=== PATIENT | male | born 1980 | race Caucasian/White ===

== ENCOUNTER → 2016-09-21 | Outpatient (CLI) | payer MEDICAID ==
[~2016-09-21] MED LIST: BACTRIM 400 MG-1 TAB PO; CLONIDINE 0.2M0.2 MG PO; NAPROXEN SODIU500 MG PO; ROBAXIN-750750 MG PO
[2016-09-21 18:54] LABS: HEMOGLOBIN 16.2 g/dL (14.1-18.0); LYMPH # 1.1 K/mm3 (0.7-4.5)
[2016-09-21 19:59] LABS: BUN 15 mg/dL (7-18); GFR (ESTIMATED) 96 ML/MIN (>60)
[2016-09-23 08:43] LABS: Vitamin D, 25-Hydroxy 40.4 ng/mL (30.0-100.0)
[2016-09-23 09:38] LABS: HBsAg Screen Negative (Negative); Hep A Ab, IgM Negative (Negative); Hep B Core Ab, IgM Negative (Negative); Hep C Virus Ab <0.1 (0.0-0.9)
== END ==
LOC: LAB 18:10
PROVIDERS: Physician Assistant
DX: I10 Essential (primary) hypertension (principal); F19.90 Other psychoactive substance use, unspecified, uncomplicated; G47.00 Insomnia, unspecified
CPT/HCPCS: G0432

== ENCOUNTER 2016-11-08 13:48 | Inpatient (IN) | payer MEDICAID ==
[~2016-11-08] VITALS: Ht 185.4 cm; Wt 112.9 kg
[2016-11-08 13:53] VITALS: BP 144/88
[2016-11-08] MEDS ORDERED: RESTORIL 30MG C30 MG PO (13:56)
[2016-11-08] MEDS ORDERED: ESCITALOPRAM5 MG PO (13:56)
--- OUTSIDE RECORDS SUMMARY | 2016-11-08 14:13 | External Medical Summary Rpt ---
Author Author , RUBI VENEGAS Address Unknown Phone [email or web address] Purpose Continuity of Care Document - 10-17-2011 through 2016 Results Labs Lab Lab Date Result Refere Interp Status Commen Order Detail nces retati t Range on Reagin Ab [Presence] in Unspecified specimen by VDRL (10-17-2011 08:00) Reagin NON-WATSON complet Ab 012 CTIVE ed [Presen 08:00 ce] in Unspeci fied specime n by VDRL Reagin Ab [Presence] in Unspecified specimen by VDRL (10-17-2011 08:00) COLLECT N/A complet OR 012 ed 08:00 ETHNICI W complet TY 012 ed 08:00 PURPOSE ROUTINE complet OF 012 ed EXAM 08:00 SPECIME BLOOD complet N 012 ed SOURCE 08:00 CHART [id number] complet NUMBER 012 ed 08:00 Reagin Pending complet Ab 012 ed [Presen 08:00 ce] in Unspeci fied specime n by VDRL
--- OUTSIDE RECORDS SUMMARY | 2016-11-08 14:13 | External Medical Summary Rpt ---
Author Author , RUBI VENEGAS Address Unknown Phone [email or web address] Purpose Continuity of Care Document - 10-17-2011 [...] complet N 012 ed SOURCE 08:00 CHART [id number] complet NUMBER 012 ed 08:00 Reagin Pending complet Ab 012 ed [Presen 08:00 ce] in Unspeci fied specime n by VDRL
--- OUTSIDE RECORDS SUMMARY | 2016-11-08 14:13 | External Medical Summary Rpt ---
Author Author [employer] Organization [employer] Address Unknown Phone Unavailable Purpose Continuity of Care Document - through 2016
--- OUTSIDE RECORDS SUMMARY | 2016-11-08 14:14 | External Medical Summary Rpt ---
Demographics Preferred Language Jordanian Marital Status Unknown Jain Affiliation Unknown Race Unknown Ethnic Group Unknown Author Author , RUBI VENEGAS Address Unknown Phone Immunization Unable to retrieve immunization data due to connection failure with Immunization Registry. Please try again later.
--- OUTSIDE RECORDS SUMMARY | 2016-11-08 14:14 | External Medical Summary Rpt ---
Demographics Preferred Language Cape Verdean Marital Status Unknown Yazidism Affiliation Unknown Race Unknown Ethnic Group Unknown Author Author , RUBI VENEGAS Address Unknown Phone Immunization Unable to retrieve immunization data due to connection failure with Immunization Registry. Please try again later.
--- OUTSIDE RECORDS SUMMARY | 2016-11-08 14:15 | External Medical Summary Rpt ---
Author Author RUBI Yamilet, [employer] Address Unknown Phone Unavailable Results Comprehensive metabolic 2000 panel in Serum or Plasma Observa Value Referen Units Interpr Notes Date tion ce etation Range Albumin/G 1.1 - 1.8 No Normal No September 21 lobulin informati informati 2016 [Mass on in on in 11:00 AM ratio] in source source Serum or data data Plasma Albumin 3.4 - 5.0 gm/dL Normal No September 21 [Mass/vol informati 2016 ume] in on in 11:00 AM Serum or source Plasma data Alkaline 46 - 116 U/L Normal No September 21 phosphata informati 2016 se on in 11:00 AM [Enzymati source c data activity/ volume] in Serum or Plasma Bilirubin 0.2 - 1.0 mg/dL Normal No September 21 .total informati 2016 [Mass/vol on in 11:00 AM ume] in source Serum or data Plasma Urea 7 - 18 mg/dL Normal No September 21 nitrogen informati 2016 [Mass/vol on in 11:00 AM ume] in source Serum or data Plasma Calcium 8.5 - mg/dL Normal No September 21 [Mass/vol 10.1 informati 2016 ume] in on in 11:00 AM Serum or source Plasma data Chloride 98 - 107 mmoL/L Normal No September 21 [Moles/vo informati 2016 lume] in on in 11:00 AM Serum or source Plasma data Carbon 21.0 - mmoL/L Normal No September 21 dioxide, 32.0 informati 2016 total on in 11:00 AM [Moles/vo source lume] in data Serum or Plasma Creatinin 0.70 - mg/dL Normal No September 21 e 1.30 informati 2016 [Mass/vol on in 11:00 AM ume] in source Serum or data Plasma Estimated >60 ML/MIN No REFERENCE September 21 informati RANGE: 2017 glomerula on in >60 11:00 AM r source ML/MIN/1. filtratio data 73 SQUARE n rate METERSIf (GF this patient is -A merican, then multiply theresult by 1.210. Globulin 1.3 - 3.2 gm/dL High No September 21 [Mass/vol informati 2016 ume] in on in 11:00 AM Serum source data Glucose 74 - 106 mg/dL Normal No September 21 [Mass/vol informati 2017 ume] in on in 11:00 AM Serum or source Plasma data Potassium 3.5 - 5.1 mmoL/L Normal No September 212016 [Moles/vo on in 11:00 AM lume] in source Serum or data Plasma Sodium 136 - 145 mmoL/L Normal No September 21 [Moles/vo informati 2016 lume] in on in 11:00 AM Serum or source Plasma data Aspartate 15 - 37 U/L Low No September 212016 aminotran on in 11:00 AM sferase source [Enzymati data c activity/ volume] in Serum or Plasma Alanine 12 - 78 U/L Normal No September 21 aminotran 2016 sferase on in 11:00 AM [Enzymati source c data activity/ volume] in Serum or Plasma Protein 6.4 - 8.2 gm/dL Normal No September 21 [Mass/vol informati 2017 ume] in on in 11:00 AM Serum or source Plasma data Thyroxine (T4) free [Mass/volume] in Serum or Plasma Observa Value Referen Units Interpr Notes Date tion ce etation Range Thyroxine 0.76 - ng/dL High No September 21 (T4) 1.46 2016 free on in 11:00 AM [Mass/vol source ume] in data Serum or Plasma Thyrotropin [Units/volume] in Serum or Plasma Observa Value Referen Units Interpr Notes Date tion ce etation Range Thyrotrop 0.358 - uIU/ml Normal No September 21 in 3.740 inform2016 [Units/vo on in 11:00 AM lume] in source Serum or data Plasma CBC W Auto Differential panel in Blood Observa Value Referen Units Interpr Notes Date ti ce etation Range Basophils 0 - 0.2 K/MM3 Normal No September 212016 [#/volume on in 11:00 AM ] in source Blood by data Automated count Basophils 0.1 - 2.0 % Normal No September 21 /100 2016 leukocyte on in 11:00 AM s in source Blood by data Automated count Eosinophi 0.0 - 0.4 K/mm3 Normal No September 21 ls informati 2016 [#/volume on in 11:00 AM ] in source Blood by data Automated count Eosinophi 0.1 - % Normal No September 21 ls/100 12.0 informati 2016 leukocyte on in 11:00 AM s in source Blood by data Automated count Granulocy 1.3 - 8.0 K/mm3 Normal No September 21 tonie informati 2016 [#/volume on in 11:00 AM ] in source Blood by data Automated count Granulocy 37.0 - % Normal No September 21 tonie/100 80.0 informati 2016 leukocyte on in 11:00 AM s in source Blood by data Automated count Hematocri 42.0 - % Normal No September 21 t [Volume 52.0 informati 2016 on in 11:00 AM Fraction] source of Blood data Hemoglobi 14.1 - g/dL Normal No September 21 n 18.0 informati 2016 [Mass/vol on in 11:00 AM ume] in source Blood data Lymphocyt 0.7 - 4.5 K/mm3 Normal No September 21 es informati 2016 [#/volume on in 11:00 AM ] in source Unspecifi data ed specimen by Automated count Lymphocyt 10 - 50 % Normal No September 21 es informati 2016 [#/volume on in 11:00 AM ] in source Unspecifi data ed specimen by Automated count Erythrocy 27 - 31.2 pg High No September 21 te mean informati 2016 corpuscul on in 11:00 AM ar source hemoglobi data n [Entitic mass] Erythrocy 31.8 - g/dl Normal September 21 te mean 35.4 informati 2016 corpuscul on in 11:00 AM ar source hemoglobi data n concentra tion [Mass/vol ume] by Automated count Erythrocy 82.2 - fl High No September 21 te mean 97.8 informati 2016 corpuscul on in 11:00 AM ar volume source [Entitic data volume] by Automated count Monocytes 0.1 - 1.0 K/mm3 Normal No September 21 informati 2016 [#/volume on in 11:00 AM ] in source Blood by data Automated count Monocytes 1.7 - 9.3 % Normal No September 21 / informati 2016 leukocyte on in 11:00 AM s in source Blood by data Automated count Platelet 7.4 - fl Normal No September 21 mean 10.4 2016 volume on in 11:00 AM [Entitic source volume] data in Blood by Automated count Platelets 142 - 424 K/mm3 Normal No September 212016 [#/volume on in 11:00 AM ] in source Blood data Erythrocy 4.6 - 6.2 M/mm3 Normal No September 21 tonie 2016 [#/volume on in 11:00 AM ] in source Amniotic data fluid Erythrocy 11.5 - % Normal No September 21 te 17.5 2016 distribut on in 11:00 AM ion width source [Entitic data volume] by Automated count Leukocyte 4.8 - K/MM3 Normal No September 21 s 10.8 2016 [#/volume on in 11:00 AM ] in source Blood data Reagin Ab [Presence] in Unspecified specimen by VDRL Observa Value Referen Units Interpr Notes Date tion ce etation Range COLLECT N/A No No No No Oct 16 OR informa informa informa informa 2012 tion in tion in tion in tion in 8:00 AM source source source source data data data data ETHNICI W No No No No Oct 16 TY informa informa informa informa 2012 tion in tion in tion in tion in 8:00 AM source source source source data data data data PURPOSE ROUTINE No No No No Oct 16 OF informa informa informa informa 2012 EXAM tion in tion in tion in tion in 8:00 AM source source source source data data data data SPECIME BLOOD No No No No Oct 16 N informa informa informa informa 2012 SOURCE tion in tion in tion in tion in 8:00 AM source source source source data data data data CHART [id number] No No No No Oct 16 NUMBER informa informa informa informa 2012 tion in tion in tion in tion in 8:00 AM source source source source data data data data Reagin NON-WATSON No No No METHOD Oct [address]IVE informa informa informa OF 2011 [Presen tion in tion in tion in ANALYSI 8:00 AM ce] in source source source S: Unspeci data data data VDRLNOR fied MAL specime RANGE: n by NON VDRL REACTIV E\.br\T his report contain s patient informa tion that must be protect ed in [facility] with the [facility] [employer] ce Portabi lity and Account ability Act. Reagin Ab [Presence] in Unspecified specimen by VDRL Observa Value Referen Units Interpr Notes Date tion ce etation Range COLLECT N/A No No No No Oct 16 OR informa informa informa informa 2012 tion in tion in tion in tion in 8:00 AM source source source source data data data data ETHNICI W No No No No Oct 16 TY informa informa informa informa 2012 tion in tion in tion in tion in 8:00 AM source source source source data data data data PURPOSE ROUTINE No No No No Oct 16 OF informa informa informa informa 2012 EXAM tion in tion in tion in tion in 8:00 AM source source source source data data data data SPECIME BLOOD No No No No Oct 16 N informa informa informa informa 2012 SOURCE tion in tion in tion in tion in 8:00 AM source source source source data data data data CHART [id number] No No No No Oct 16 NUMBER informa informa informa informa 2012 tion in tion in tion in tion in 8:00 AM source source source source data data data data Reagin Pending No No No \.br\Oct 16 Ab informa informa informa is 2011 [Presen tion in tion in tion in report 8:00 AM ce] in source source source contain Unspeci data data data s fied patient specime n by informa VDRL tion that must be protect ed in [facility] with the [employer] ce Portabi lity and Account ability Act.
--- OUTSIDE RECORDS SUMMARY | 2016-11-08 14:15 | External Medical Summary Rpt ---
[...] source source data data data data CHART [id number] No No No No Oct 16 NUMBER [...] tion that must be protect ed in [facility] with the Health Ins[employer] ce Portabi [...] source source data data data data CHART [id number] No No No No Oct 16 NUMBER [...] tion that must be protect ed in [facility] with the [employer] ce Portabi lity and Account ability Act.
[2016-11-08 14:16] LABS: HEMOGLOBIN 16.6 g/dL (14.1-18.0); LYMPH % 26.5 % (10-50)
--- NOTE | 2016-11-08 14:36 | Emergency Room Report ---
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 N Clinical Suspician of Infection? N Mental Status: 1 - Regular (Normal Baseline) Sepsis Risk:Low Sepsis Risk Have you (or family members/close friends) recently traveled outside the [place]? N If Yes, where/when: Have you had exposure to infectious disease within the past month? TB? Other? Specify: Comment The patient has a 3 day history of jaundice with scleral icterus and jaundice of the skin, dark urine. He says his kidneys hurt and he has abdominal cramping. He feels fatigued. He admits to intravenous drug abuse with heroin. He says he was tested for hepatitis month ago. No prior history of hepatitis. He does not use alcohol. He also states that he drank a gallon of 40 yesterday and only urinated once, he feels dehydrated. ALLERGIES Coded Allergies: No Known Allergies (11/08/16) Home Medications Reported Medications Clonidine Hydrochloride (Clonidine 0.2MG Tab) 0.2 MG PO DAILY Escitalopram Oxalate 5 MG PO DAILY #30 Temazepam (Restoril 30MG) 30 MG PO QHS #30 History Medical History General CAD? No Angina: No [place]: No Hypertension? Yes Hyperlipidemia? No CHF? No DVT? No PE? No COPD? No Asthma? No Anemia? No GERD? No Gastric ulcers? No Hernia? No Hypothyroidism? No CVA? No Seizures? No Diabetes? No End Stage Renal Disease? No UTI? No Stones? No BPH? No GB Disease: No Asplenia? No Sickle Cell Disease? No Arthritis? No Migraines? No Cataracts? No Glaucoma? No MRSA? No HIV? No Anxiety? No Depression? No Cancer? No Site: N Immunization Hx Ped.Immunizations UTD Yes DT/Tetanus Unknown Surgical Hx Previous Surgery?N Social History Smoking Hx Smoker: Current Every Day Smoker Tobacco: Yes Type Cigarettes Packs/day < 1 Pack Alcohol Alcohol: No Review of Systems All Other Systems Reviewed and Negative Constitutional denies fever, malaise Eyes see HPI Gastrointestinal abdominal pain Genitourinary see HPI. Physical Exam Vital Signs Vital Signs Date Time Temp Pulse Resp B/P Pulse O2 O2 Flow FiO2 Ox Delivery Rate 11/08 1817 98.5 73 20 109/74 98 ROOM AIR 11/08 1813 73 11/08 1813 98.5 73 20 109/74 11/08 1813 98 ROOM AIR 11/08 1759 98.8 73 14 116/81 98 11/08 1611 73 14 116/81 98 11/08 1528 72 18 132/81 98 11/08 1442 72 18 138/76 97 11/08 1353 98.8 73 18 144/88 96 General Appearance normal appearance, WD/WN Eye Exam - bilateral eye normal exam, bilateral eye PERRL, bilateral eye EOMI, bilateral eye icterus Ear, Nose, Throat hearing grossly normal, normal ENT inspection Neck normal inspection, non-tender, supple, full range of motion Respiratory Status Yes: trachea midline, chest symmetrical, non tender chest. No: respiratory distress. Lung Sounds bilateral: normal breath sounds, lungs clear. 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 No Results/Orders Laboratory Tests 11/08/16 1445: Urine Color CLEMENTE, Urine Appearance CLEAR, Urine pH TNP, Ur Specific [place] TNP , Urine Protein TNP, Urine Ketones TNP, Urine Blood TNP, Urine Nitrate TNP, Urine Bilirubin TNP, Urine Ictotest POSITIVE, Urine Urobilinogen TNP, Ur Leukocyte Esterase TNP, Urine RBC OCC, Urine WBC 5-10, Ur Squamous Epith Cells OCC, Urine Bacteria 3+, Coarse Granular Casts 5-10, WBC Casts OCC, Urine Mucus 2 +, Urine Glucose TNP 11/08/16 1432: Hepatitis A Ab Total Cancelled, Hep Bs Antigen Cancelled, Hep Bs Antibody Cancelled, Hep B Core Total Ab Cancelled, Hepatitis C Antibody Cancelled 11/08/16 1400: Amylase 27, Lipase 127 11/08/16 1400: Total Bilirubin 11.4 H, Direct Bilirubin 8.34 H, Indirect Bilirubin 3.06 H, AST 1187 *H, ALT 1672 *H, Alkaline Phosphatase 370 H, Total Protein 7.3, Albumin 3.3 L 11/08/16 1400: Sodium 141, Potassium 4.4, Chloride 103, Carbon Dioxide 30, BUN 12, Creatinine 0.8, Estimated Creat Clear 213 H, Estimated GFR (MDRD) 109, Glucose 92, Calcium 9.1, Total Bilirubin 11.3 H, AST 1201 *H, ALT 1649 *H, Alkaline Phosphatase 369 H, Total Protein 7.6, Albumin 3.2 L, Globulin 4.4 H, Albumin/Globulin Ratio 0.7 L, PT 11.7, INR 1.08, WBC 7.4, RBC 5.12, Hgb 16.6, Hct 50.2, MCV 97.9 H, RDW 14.3, Plt Count 237, MPV 8.5, Gran % 62.6, Gran # 4.7, Lymphocytes % 26.5, Monocytes % 9.3, Eosinophils % 0.9, Basophils % 0.7, Lymphocytes # 2.0, Monocytes # 0.7, Eosinophils # 0.1, Basophils # 0.1, PUBS MCHC 33.2, MCH 32.5 H , Hepatitis A IgM Ab Pending, Hep Bs Antigen Pending, Hep B Core IgM Ab Pending, Hepatitis C Antibody Pending Current Medication Orders Sig/[place] Start time Last Medication Dose Route Stop Time Status Admin Nicotine 21 MG DAILYP PRN 11/08 1800 UNV TD Ondansetron HCl 4 MG Q6HP PRN 11/08 1800 UNV IV Sodium Chloride 1,000 ML .Q6H40M 11/08 1800 UNV 11/08 IV 1811 Sodium Chloride 10 ML PRN PRN 11/08 1800 UNV IV Iopamidol 75 ML ONCE ONE 11/08 1615 DC 11/08 IV 11/08 1616 1606 Sodium Chloride 10 ML PRN PRN 11/08 1615 DC 11/08 IV 11/08 1735 1606 Ondansetron HCl 0 .STK-MED ONE 11/08 1451 DC .ROUTE Sodium Chloride 1,000 ML .STK-MED ONE 11/08 1450 DC IV Ondansetron HCl 4 MG ONCE ONE 11/08 1445 DC 11/08 IV 11/08 1446 1454 Sodium Chloride 1,000 ML .Q1H1M 11/08 1445 DC 11/08 IV 11/08 1545 1454 Sodium Chloride 10 ML PRN PRN 11/08 1400 AC IV 11/09 1358 Orders Procedure Date/time Status DIET-CLEAR LIQUID 11/09 B Active DIET-NOTHING BY MOUTH 11/08 D Complete ADMITTED PT IS ACTUALLY IN BED 11/08 1820 Active Decision to admit 11/08 1720 Active US GALLBLADDER (ABD LTD) 11/08 1626 Active LIVER PROFILE 11/[address] ABD & PELVIS W/ CONTRAST 11/08 1501 Active LIPASE 11/08 1456 Complete AMYLASE 11/[address] ABD/PELVIS REQ 11/08 1455 Complete CULTURE, URINE 11/08 1445 Active PROTHROMBIN TIME 11/08 1432 Complete HEPATITIS B PROFILE 11/08 1432 Active IV SALINE LOCK 11/08 1358 Active URINALYSIS/COMPLETE 11/08 1358 Complete CBC WITH AUTO DIFF 11/08 1358 Complete CHEM 12 PROFILE 11/08 1358 Complete ADMIT PATIENT 11/08 UNK Active VITAL SIGNS 11/08 UNK Active POM NURSE STACI HOSE ORDER 11/08 UNK Active IV SALINE LOCK 11/08 UNK Active RECORD I & O 11/08 UNK Active CODE STATUS 11/08 UNK Active PATIENT ACTIVITY ORDER 11/08 UNK Active COMPLETE METABOLIC PANEL 11/08 UNK Active XRAY/CT/US XRAY/CT/US CT abdomen, pelvis Comment CT scan interpreted by radiologist: Since scan less than one year ago gallbladder is now thickened, enhancing wall. Uncertain cause, questionable infarcted gallbladder. No signs of biliary obstruction seen, no dilated ducts. Ultrasound gallbladder Comment As per [facility] procedure, ultrasound report received from glass technician/installer: Thickened, contracted gallbladder. No stones. Common bile duct upper limits of normal. Progress - 4:20 PM: Case discussed with Dr. Leo. Gallbladder ultrasound requested. 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 5:20 PM: Case discussed with Dr. Ellington. He does not feel there is a surgical problem associated with his gallbladder at this time. Will admit for medical treatment. Departure Departure Disposition Still a Patient Clinical Impression Primary Impression: Acute hepatitis Condition STABLE Referrals RAJAT HUGHES (Family) ED Critical Care Critical Care No at 2015
[2016-11-08 15:07] LABS: URINE BILIRUBIN ICTOTEST POSITIVE (NEG)
[2016-11-08 15:09] LABS: URINE SQUAMOUS CELLS OCC #/hpf (OCC)
[2016-11-08 16:15] LABS: BILIRUBIN, INDIRECT 3.06 mg/dL (0-0.9)
--- OUTSIDE RECORDS SUMMARY | 2016-11-08 17:49 | External Medical Summary Rpt ---
Author Author , RUBI VENEGAS Address Unknown Phone [email or web address] Purpose Continuity of Care Document - 10-17-2011 through 2016 Results Labs Lab Lab Date Result Refere Interp Status Commen Order Detail nces retati t Range on Urinalysis dipstick W Reflex Microscopic panel in Urine (11-08-2016 14:45) Bacteri 3+ O complet a 017 ed [Presen 14:45 ce] in Urine sedimen t by Light microsc opy Coarse 5-10 NONE complet Granula 017 ed r Casts 14:45 [Presen ce] in Urine sedimen t by Light microsc opy Mucus 2+ NONE complet [Presen 017 ed ce] in 14:45 Urine sedimen t by Light microsc opy Erythro OCC 0 complet cytes 017 ed [Presen 14:45 ce] in Urine sedimen t by Light microsc opy Epithel OCC OCC complet ial 017 ed cells.s 14:45 quamous [Presen ce] in Urine sedimen t by Microsc opy high power field Leukocy 5-10 O complet tonie 017 wbc/hpf ed [#/volu 14:45 me] in Urine Urinalysis dipstick W Reflex Microscopic panel in Urine (11-08-2016 14:45) Appeara CLEAR CLEAR complet nce of 017 ed Urine 14:45 Bilirub TNP NEG complet in 017 ed [Presen 14:45 ce] in Urine by Test strip Erythro TNP NEG complet cytes 017 ed [Presen 14:45 ce] in Urine Color CLEMENTE YELLOW complet of 017 ed Urine 14:45 Bilirub POSITIV NEG complet in 017 E ed [Presen 14:45 ce] in Urine by Confirm atory method Ketones TNP NEG complet 017 ed [Presen 14:45 ce] in Urine by Automat ed test strip Mucus TNP NEG complet [Presen 017 ed ce] in 14:45 Urine sedimen t by Light microsc opy Nitrite TNP NEG complet 017 ed [Presen 14:45 ce] in Urine by Test strip pH of TNP 5.0 - complet Urine 017 8.5 ed 14:45 Specifi TNP 1.005 - complet c 017 1.030 ed gravity 14:45 of Urine Urobili TNP NEG complet nogen 017 ed [Presen 14:45 ce] in Urine by Test strip Reagin Ab [Presence] in Unspecified specimen by [...] complet N 012 ed SOURCE 08:00 CHART [id number] complet NUMBER 012 ed 08:00 Reagin Pending complet Ab 012 ed [Presen 08:00 ce] in Unspeci fied specime n by VDRL
--- OUTSIDE RECORDS SUMMARY | 2016-11-08 17:49 | External Medical Summary Rpt ---
Author Author , RUBI VENEGAS Address Unknown Phone [email or web address] Purpose Continuity of Care Document - 10-17-2011 [...] complet N 012 ed SOURCE 08:00 CHART [id number] complet NUMBER 012 ed 08:00 Reagin Pending complet Ab 012 ed [Presen 08:00 ce] in Unspeci fied specime n by VDRL
--- OUTSIDE RECORDS SUMMARY | 2016-11-08 17:50 | External Medical Summary Rpt ---
Demographics Preferred Language Tuvaluan Marital Status Unknown Religion Affiliation Unknown Race Unknown Ethnic Group Unknown Author Author , RUBI VENEGAS Address Unknown Phone Immunization Unable to retrieve immunization data due to connection failure with Immunization Registry. Please try again later.
--- OUTSIDE RECORDS SUMMARY | 2016-11-08 17:50 | External Medical Summary Rpt ---
Demographics Preferred Language Omani Marital Status Unknown Mandaen Affiliation Unknown Race Unknown Ethnic Group Unknown Author Author , RUBI VENEGAS Address Unknown Phone Immunization Unable to retrieve immunization data due to connection failure with Immunization Registry. Please try again later.
--- OUTSIDE RECORDS SUMMARY | 2016-11-08 17:51 | External Medical Summary Rpt ---
Author Author [employer] Woodard, [employer] Organization [employer] Address Unknown Phone Unavailable Results Urinalysis dipstick W Reflex Microscopic panel in Urine Observa Value Referen Units Interpr Notes Date tion ce etation Range Appeara CLEAR CLEAR No No No Nov 08 nce of informa informa informa 2017 Urine tion in tion in tion in 2:45 PM source source source data data data Bacteri 3+ O No No No Nov 08 a informa informa informa 2016 [Presen tion in tion in tion in 2:45 PM ce] in source source source Urine data data data sedimen t by Light microsc opy Bilirub TNP NEG No No No Nov 08 in informa informa informa 2016 [Presen tion in tion in tion in 2:45 PM ce] in source source source Urine data data data by Test strip Erythro TNP NEG No No No Nov 08 cytes informa informa informa 2016 [Presen tion in tion in tion in 2:45 PM ce] in source source source Urine data data data Coarse 5-10 NONE #/hpf No No Nov 08 Granula informa informa 2017 r Casts tion in tion in 2:45 PM source source [Presen data data ce] in Urine sedimen t by Light microsc opy Color CLEMENTE YELLOW No No No Nov 08 of informa informa informa 2016 Urine tion in tion in tion in 2:45 PM source source source data data data Glucose NEG No No TNP = Nov 08 [Mass/vol informati informati TESTS NOT 2017 2:45 ume] in on in on in PM Urine by source source PERFORMED Test data data DUE TO strip COLOR INTERFERE NCE WITHANALY ZER. Bilirub POSITIV NEG No No No Nov 08 in E informa informa informa 2016 [Presen tion in tion in tion in 2:45 PM ce] in source source source Urine data data data by Confirm atory method Ketones TNP NEG mg/dL No No Nov 08 informa informa 2016 [Presen tion in tion in 2:45 PM ce] in source source Urine data data by Automat ed test strip Mucus TNP NEG No No No Nov 08 [Presen informa informa informa 2016 ce] in tion in tion in tion in 2:45 PM Urine source source source sedimen data data data t by Light microsc opy Mucus 2+ NONE No No No Nov 08 [Presen informa informa informa 2016 ce] in tion in tion in tion in 2:45 PM Urine source source source sedimen data data data t by Light microsc opy Nitrite TNP NEG No No No Nov 08 informa informa informa 2016 [Presen tion in tion in tion in 2:45 PM ce] in source source source Urine data data data by Test strip pH of TNP 5.0 - No No No Nov 08 Urine 8.5 informa informa informa 2017 tion in tion in tion in 2:45 PM source source source data data data Protein NEG mg/dL No No Nov 08 [Mass/vol informati informati 2017 2:45 ume] in on in on in PM Urine by source source Automated data data test strip Erythro OCC 0 rbc/hpf No No Nov 08 cytes informa informa 2016 [Presen tion in tion in 2:45 PM ce] in source source Urine data data sedimen t by Light microsc opy Specifi TNP 1.005 - No No No Nov 08 c 1.030 informa informa informa 2017 gravity tion in tion in tion in 2:45 PM of source source source Urine data data data Epithel OCC OCC #/hpf No No Nov 08 ial informa informa 2017 cells.s tion in tion in 2:45 PM quamous source source data data [Presen ce] in Urine sedimen t by Microsc opy high power field Urobili TNP NEG E.U./dL No No Nov 08 nogen informa informa 2016 [Presen tion in tion in 2:45 PM ce] in source source Urine data data by Test strip Leukocy [5 O wbc/hpf No No Nov 08 toine wbc/hpf informa informa 2016 [#/volu ; 10 tion in tion in 2:45 PM me] in wbc/hpf source source Urine ] data data WBC casts NONE #/lpf No No Nov 08 [#/area] informati informati 2017 2:45 in Urine on in on in PM sediment source source by data data Microscop y low power field Urinalysis dipstick W Reflex Microscopic panel in Urine Observa Value Referen Units Interpr Notes Date tion ce etation Range Appeara CLEAR CLEAR No No No Nov 08 nce of informa informa informa 2017 Urine tion in tion in tion in 2:45 PM source source source data data data Bilirub TNP NEG No No No Nov 08 in informa informa informa 2016 [Presen tion in tion in tion in 2:45 PM ce] in source source source Urine data data data by Test strip Erythro TNP NEG No No No Nov 08 cytes informa informa informa 2016 [Presen tion in tion in tion in 2:45 PM ce] in source source source Urine data data data Color CLEMENTE YELLOW No No No Nov 08 of informa informa informa 2016 Urine tion in tion in tion in 2:45 PM source source source data data data Glucose NEG No No TNP = Nov 08 [Mass/vol informati informati TESTS NOT 2017 2:45 ume] in on in on in PM Urine by source source PERFORMED Test data data DUE TO strip COLOR INTERFERE NCE WITHANALY ZER. Bilirub POSITIV NEG No No No Nov 08 in E informa informa informa 2016 [Presen tion in tion in tion in 2:45 PM ce] in source source source Urine data data data by Confirm atory method Ketones TNP NEG mg/dL No No Nov 08 informa informa 2016 [Presen tion in tion in 2:45 PM ce] in source source Urine data data by Automat ed test strip Mucus TNP NEG No No No Nov 08 [Presen informa informa informa 2016 ce] in tion in tion in tion in 2:45 PM Urine source source source sedimen data data data t by Light microsc opy Nitrite TNP NEG No No No Nov 08 informa informa informa 2016 [Presen tion in tion in tion in 2:45 PM ce] in source source source Urine data data data by Test strip pH of TNP 5.0 - No No No Nov 08 Urine 8.5 informa informa informa 2017 tion in tion in tion in 2:45 PM source source source data data data Protein NEG mg/dL No No Nov 08 [Mass/vol informati informati 2017 2:45 ume] in on in on in PM Urine by source source Automated data data test strip Specifi TNP 1.005 - No No No Nov 08 c 1.030 informa informa informa 2017 gravity tion in tion in tion in 2:45 PM of source source source Urine data data data Urobili TNP NEG E.U./dL No No Nov 08 nogen informa informa 2016 [Presen tion in tion in 2:45 PM ce] in source source Urine data data by Test strip Hepatic function 2000 panel in Serum or Plasma Observa Value Referen Units Interpr Notes Date tion ce etation Range Albumin 3.4 - 5.0 gm/dL Low No Nov 08 [Mass/vol informati 2017 2:00 ume] in on in PM Serum or source Plasma data Alkaline 46 - 116 U/L High No Nov 08 phosphata informati 2017 2:00 se on in PM [Enzymati source c data activity/ volume] in Serum or Plasma Bilirubin 0.0 - 0.2 mg/dL High No Nov 08 .direct informati 2017 2:00 [Mass/vol on in PM ume] in source Serum or data Plasma Bilirubin 0 - 0.9 mg/dL High No Nov 08 .indirect informati 2017 2:00 on in PM [Mass/vol source ume] in data Serum or Plasma Bilirubin 0.2 - 1.0 mg/dL High No Nov 08 .total informati 2017 2:00 [Mass/vol on in PM ume] in source Serum or data Plasma Aspartate 15 - 37 U/L High No Nov 08 alert informati 2016 2:00 aminotran on in PM sferase source [Enzymati data c activity/ volume] in Serum or Plasma Alanine 12 - 78 U/L High No Nov 08 aminotran alert informati 2016 2:00 sferase on in PM [Enzymati source c data activity/ volume] in Serum or Plasma Protein 6.4 - 8.2 gm/dL Normal No Nov 08 [Mass/vol informati 2017 2:00 ume] in on in PM Serum or source Plasma data Comprehensive metabolic 2000 panel in Serum or Plasma Observa Value Referen Units Interpr Notes Date tion ce etation Range Albumin/G 1.1 - 1.8 No Low No Nov 08 lobulin informati informati 2017 2:00 [Mass on in on in PM ratio] in source source Serum or data data Plasma Albumin 3.4 - 5.0 gm/dL Low No Nov 08 [Mass/vol informati 2016 2:00 ume] in on in PM Serum or source Plasma data Alkaline 46 - 116 U/L High No Nov 08 phosphata informati 2017 2:00 se on in PM [Enzymati source c data activity/ volume] in Serum or Plasma Bilirubin 0.2 - 1.0 mg/dL High No Nov 08 .total informati 2016 2:00 [Mass/vol on in PM ume] in source Serum or data Plasma Urea 7 - 18 mg/dL Normal No Nov 08 nitrogen informati 2016 2:00 [Mass/vol on in PM ume] in source Serum or data Plasma Calcium 8.5 - mg/dL Normal No Nov 08 [Mass/vol 10.1 informati 2017 2:00 ume] in on in PM Serum or source Plasma data Chloride 98 - 107 mmoL/L Normal No Nov 08 [Moles/vo informati 2016 2:00 lume] in on in PM Serum or source Plasma data Carbon 21.0 - mmoL/L Normal No Nov 08 dioxide, 32.0 informati 2017 2:00 total on in PM [Moles/vo source lume] in data Serum or Plasma Creatinin 0.70 - mg/dL Normal No Nov 08 e 1.30 informati 2017 2:00 [Mass/vol on in PM ume] in source Serum or data Plasma Creatinin 50 - 200 ML/MIN High No Nov 08 e renal informati 2016 2:00 clearance on in PM source predicted data by Cockcroft -Gault formula Estimated >60 ML/MIN No REFERENCE Nov 08 informati RANGE: 2017 2:00 glomerula on in >60 PM r source ML/MIN/1. filtratio data 73 SQUARE n rate METERSIf (GF this patient is -A merican, then multiply theresult by 1.210. Globulin 1.3 - 3.2 gm/dL High No Nov 08 [Mass/vol informati 2017 2:00 ume] in on in PM Serum source data Glucose 74 - 106 mg/dL Normal No Nov 08 [Mass/vol informati 2016 2:00 ume] in on in PM Serum or source Plasma data Potassium 3.5 - 5.1 mmoL/L Normal K MAY BE Nov 08 FALSELY 2017 2:00 [Moles/vo ELEVAED PM lume] in DUE TO Serum or ICTERIC Plasma SAMPLE Sodium 136 - 145 mmoL/L Normal No Nov 08 [Moles/vo informati 2017 2:00 lume] in on in PM Serum or source Plasma data Aspartate 15 - 37 U/L High No Nov 08 alert informati 2016 2:00 aminotran on in PM sferase source [Enzymati data c activity/ volume] in Serum or Plasma Alanine 12 - 78 U/L High No Nov 08 aminotran alert informati 2016 2:00 sferase on in PM [Enzymati source c data activity/ volume] in Serum or Plasma Protein 6.4 - 8.2 gm/dL Normal No Nov 08 [Mass/vol informati 2016 2:00 ume] in on in PM Serum or source Plasma data Amylase [Enzymatic activity/volume] in Serum or Plasma Observa Value Referen Units Interpr Notes Date tion ce etation Range Amylase 25 - 115 U/L Normal No Nov 08 [Enzymati informati 2016 2:00 c on in PM activity/ source volume] data in Serum or Plasma Lipase [Enzymatic activity/volume] in Serum or Plasma Observa Value Referen Units Interpr Notes Date tion ce etation Range Lipase 73 - 393 U/L Normal No Nov 08 [Enzymati informati 2016 2:00 c on in PM activity/ source volume] data in Serum or Plasma INR in Blood by Coagulation assay Observa Value Referen Units Interpr Notes Date tion ce etation Range IS PATIENT ON ANTICOAGULANTS? N INR in 0.9 - 1.1 No Normal INDICATIO Nov 08 Blood by informati N 2017 2:00 Coagulati on in PM on assay source INR data RANGETHER APY FOR DVT, PE, ATRIAL FIB; 2.0 - 3.0PROPHY LAXIS FOR VTETHERAP Y FOR MECHANICA L HEART 2.5 - 3.5VALVE; PREVENTIO N OF SYSTEMICE MBOLISM SECONDARY TO AMI Prothromb 9.4 - SECONDS Normal No Nov 08 in time 11.8 informati 2017 2:00 (PT) in on in PM Platelet source poor data plasma by Coagulati on assay CBC W Auto Differential panel in Blood Observa Value Referen Units Interpr Notes Date tion ce etation Range Basophils 0 - 0.2 K/MM3 Normal No Nov 08 inform2016 2:00 [#/volume on in PM ] in source Blood by data Automated count Basophils 0.1 - 2.0 % Normal No Nov 08 informati 2016 2:00 leukocyte on in PM s in source Blood by data Automated count Eosinophi 0.0 - 0.4 K/mm3 Normal No Nov 08 ls informati 2016 2:00 [#/volume on in PM ] in source Blood by data Automated count Eosinophi 0.1 - % Normal No Nov 08 ls/100 12.0 informati 2016 2:00 leukocyte on in PM s in source Blood by data Automated count Granulocy 1.3 - 8.0 K/mm3 Normal No Nov 08 tonie informati 2016 2:00 [#/volume on in PM ] in source Blood by data Automated count Granulocy 37.0 - % Normal No Nov 08 tonie/100 80.0 informati 2016 2:00 leukocyte on in PM s in source Blood by data Automated count Hematocri 42.0 - % Normal No Nov 08 t [Volume 52.0 informati 2016 2:00 on in PM Fraction] source of Blood data Hemoglobi 14.1 - g/dL Normal No Nov 08 n 18.0 2016 2:00 [Mass/vol on in PM ume] in source Blood data Lymphocyt 0.7 - 4.5 K/mm3 Normal No Nov 08 es informati 2016 2:00 [#/volume on in PM ] in source Unspecifi data ed specimen by Automated count Lymphocyt 10 - 50 % Normal No Nov 08 es informati 2016 2:00 [#/volume on in PM ] in source Unspecifi data ed specimen by Automated count Erythrocy 27 - 31.2 pg High No Nov 08 te mean informati 2016 2:00 corpuscul on in PM ar source hemoglobi data n [Entitic mass] Erythrocy 31.8 - g/dl Normal No Nov 08 te mean 35.4 informati 2016 2:00 corpuscul on in PM ar source hemoglobi data n concentra tion [Mass/vol ume] by Automated count Erythrocy 82.2 - fl High No Nov 08 te mean 97.8 inform2016 2:00 corpuscul on in PM ar volume source [Entitic data volume] by Automated count Monocytes 0.1 - 1.0 K/mm3 Normal No Nov 082016 2:00 [#/volume on in PM ] in source Blood by data Automated count Monocytes 1.7 - 9.3 % Normal No Nov 08 /100 informati 2016 2:00 leukocyte on in PM s in source Blood by data Automated count Platelet 7.4 - fl Normal No Nov 08 mean 10.4 ati 2016 2:00 volume on in PM [Entitic source volume] data in Blood by Automated count Platelets 142 - 424 K/mm3 Normal No Nov 082016 2:00 [#/volume on in PM ] in source Blood data Erythrocy 4.6 - 6.2 M/mm3 Normal No Nov 08 tonie 2016 2:00 [#/volume on in PM ] in source Amniotic data fluid Erythrocy 11.5 - % Normal No Nov 08 te 17.5 ati 2016 2:00 distribut on in PM ion width source [Entitic data volume] by Automated count Leukocyte 4.8 - K/MM3 Normal No Nov 08 s 10.8 ati 2016 2:00 [#/volume on in PM ] in source Blood data Comprehensive metabolic 2000 panel in Serum or [...] 116 U/L Normal No September 21 phosphata ati 2016 se on in 11:00 AM [Enzymati [...] Normal No September 21 [Mass/vol 10.1 informati 2017 ume] in on in 11:00 AM Serum or source Plasma data Chloride 98 - 107 mmoL/L Normal No September 21 [Moles/vo informati 2017 lume] in on in 11:00 AM Serum or source Plasma data Carbon 21.0 - mmoL/L Normal No September 21 dioxide, 32.0 informati 2016 total on in 11:00 AM [Moles/vo source lume] in data Serum or Plasma Creatinin 0.70 - mg/dL Normal No September 21 e 1.30 inform2016 [Mass/vol on in 11:00 AM ume] in source Serum or data Plasma Estimated >60 ML/MIN No REFERENCE September 21 informati RANGE: 2017 glomerula on in >60 11:00 AM r source ML/MIN/1. filtratio data 73 SQUARE n rate METERSIf (GF this patient is -A merican, then multiply theresult by 1.210. Globulin 1.3 - 3.2 gm/dL High No September 21 [Mass/vol informati 2017 ume] in on in 11:00 AM Serum source data Glucose 74 - 106 mg/dL Normal No September 21 [Mass/vol informati 2017 ume] in on in 11:00 AM Serum or source Plasma data Potassium 3.5 - 5.1 mmoL/L Normal No September 21 inform2016 [Moles/vo on in 11:00 AM lume] in source Serum or data Plasma Sodium 136 - 145 mmoL/L Normal No September 21 [Moles/vo informati 2017 lume] in on in 11:00 AM Serum or source Plasma data Aspartate 15 - 37 U/L Low No September [id number] aminotran on in 11:00 AM sferase source [Enzymati data c activity/ volume] in Serum or Plasma Alanine 12 - 78 U/L Normal No September 21 aminotran inform2016 sferase on in 11:00 AM [Enzymati source c data activity/ volume] in Serum or Plasma Protein 6.4 - 8.2 gm/dL Normal No September 21 [Mass/vol informati 2017 ume] in on in 11:00 AM Serum or source Plasma data Thyroxine (T4) free [Mass/volume] in Serum or Plasma Observa Value Referen Units Interpr Notes Date tion ce etation Range Thyroxine 0.76 - ng/dL High No May 24 (T4) 1.46 informati 2016 free on in 11:00 AM [Mass/vol [...] Interpr Notes Date tion ce etation Range Basophils 0 - 0.2 K/MM3 Normal No September 21 inform2016 [#/volume on in 11:00 AM ] in source Blood by data Automated count Basophils 0.1 - 2.0 % Normal No September [id number] leukocyte on in 11:00 AM s in source Blood by data Automated count Eosinophi 0.0 - 0.4 K/mm3 Normal No September 21 ls ati 2016 [#/volume on in 11:00 AM ] in source Blood by data Automated count Eosinophi 0.1 - % Normal No September 21 ls/100 12.0 inform2016 leukocyte on in 11:00 AM s in source Blood by data Automated count Granulocy 1.3 - 8.0 K/mm3 Normal No September 21 tonie ati 2016 [#/volume on in 11:00 AM ] in source Blood by data Automated count Granulocy 37.0 - % Normal No September 21 tonie/100 80.0 2016 leukocyte on in 11:00 AM s [...] pg High No September 21 te mean 2016 corpuscul on in 11:00 AM ar source hemoglobi data n [Entitic mass] Erythrocy 31.8 - g/dl Normal No September 21 te mean 35.4 inform2016 corpuscul on in 11:00 AM ar source hemoglobi data n concentra tion [Mass/vol ume] by Automated count Erythrocy 82.2 - fl High No September 21 te mean 97.8 inform2016 corpuscul on in 11:00 AM ar volume source [Entitic data volume] by Automated count Monocytes 0.1 - 1.0 K/mm3 Normal No September 21 informati 2016 [#/volume on in 11:00 AM ] in source Blood by data Automated count Monocytes 1.7 - 9.3 % Normal No September 21 /100 inform2016 leukocyte on in 11:00 AM s in source Blood by data Automated count Platelet 7.4 - fl Normal No September 21 mean 10.4 inform2016 volume on in 11:00 AM [Entitic source volume] data in Blood by Automated count Platelets 142 - 424 K/mm3 Normal No September 21 informati 2016 [#/volume on in 11:00 AM ] in source Blood data Erythrocy 4.6 - 6.2 M/mm3 Normal No September 21 tonie informati 2016 [#/volume on in 11:00 AM ] in source Amniotic data fluid Erythrocy 11.5 - % Normal No September 21 te 17.5 informati 2016 distribut on in 11:00 AM ion width source [Entitic data volume] by Automated count Leukocyte 4.8 - K/MM3 Normal No September 21 s 10.8 informati 2016 [#/volume on in 11:00 AM [...] source source data data data data CHART [id number] No No No No Oct 16 NUMBER [...] tion that must be protect ed in accorda nce with the Health Insuran ce Port[employer] lity [...] source source data data data data CHART [id number] No No No No Oct 16 NUMBER informa informa informa informa 2012 tion in tion in tion in tion in 8:00 AM source source source source data data data data Reagin Pending No No No \.br\Oct 16 Ab informa informa informa is 2012 [Presen tion in tion in tion in report 8:00 AM ce] in source source source contain Unspeci data data data s fied patient specime n by informa VDRL tion that must be protect ed in accorda nce with the Health Insuran ce Portabi lity and Account ability Act.
--- OUTSIDE RECORDS SUMMARY | 2016-11-08 17:51 | External Medical Summary Rpt ---
[...] [5 O wbc/hpf No No Nov 08 tonie wbc/hpf informa informa 2016 [#/volu ; 10 [...] source source data data data data CHART [id number] No No No No Oct 16 NUMBER [...] source source data data data data CHART [id number] No No No No Oct 16 NUMBER [...]
[2016-11-08 18:13] VITALS: BP 109/74
[2016-11-08 18:18] VITALS: BP 109/74
[2016-11-08 19:30] VITALS: BP 124/79
[2016-11-08 21:30] VITALS: BP 124/79
--- NOTE | 2016-11-08 22:59 | RADIOLOGY REPORT PS360 ---
CT ABD PELVIS W/ CONTRAST Ordering Physician: Daljit Leo MD Patient Age: 36 years: Male HISTORY: JAUNDICEabdominal pain epigastric pain TECHNIQUE: Helical CT scans abdomen pelvis with no oral contrast. 75 cc Isovue-[id number] was utilized. Patient scanning at 30 seconds, 60 seconds with 10 minute delayed images. Liver protocol. Sagittal and coronal reconstructions on CT workstation. COMPARISON. March 2016 CT abdomen pelvis Lower thorax. Lung bases clear.. Heart normal size. ABDOMEN PELVIS: Markedly contracted Gallbladder with enhancing thickened gb wall & diffuse pericholecystic fluid surrounding this contracted gallbladder. Findings highly suggestive of acute cholecystitis.... No gallstones evident by CT No intrahepatic biliary ductal dilatation. Duct upper normal in marielos hepatis. Common duct normal continuing to the head of pancreas. Pancreas. Appears satisfactory. No significant findings. Spleen unremarkable. Kidneys. No Urinary tract calculi nor obstruction. Normal enhancement on delayed images. Ureters and bladder unremarkable. GI tract. No bowel dilatation or obstruction.. Small bowel normal caliber.Appendix appears normal. : Large bowel: Areas of low-density wall thickening at the hepatic flexure and portions of transverse colon, as well as to the cecum. Nonspecific reflect lack of distention. Could reflect adjacent colitis or given the low-density wall thickening can reflect chronic bowel inflammation with this picture. The lack of liquid stool speaks against significant acute colitis. Upper normal wall thickening terminal ileum also noted.. Diverticulosis throughout sigmoid colon and descending colon, but no diverticulitis Old wedge configuration T11 again noted and stable possibly old trauma. T11/12 spondylosis with posterior hypertrophic ridging most evident to the right. IMPRESSION 1.. Findings compatible with Cholecystitis.. DiffuseGB wall thickening, generous pericholecystic fluid surrounding a markedly contracted gallbladder.. No CT evidence of gallstones 2. . Pancreas unremarkable.Common duct WNL. Intrahepatic biliary duct normal/ upper normal 3. Suggestion Slight wall thickening large bowel at hepatic flexure- just adjacent to this abnormal gallbladder.. Question may Reflect adjacent colitis (vs low-density full-thickness from chronic inflammatory process involving large bowel)
[2016-11-09 04:28] VITALS: BP 113/68
[2016-11-09 07:58] VITALS: BP 112/76
--- NOTE | 2016-11-09 08:00 | PHARMACY CLINIC NOTE ---
Patient Demographics Patient Demographics Admission date: 11/08/16 Date: 11/09/16 Time: 0759 Allergies Coded Allergies: No Known Allergies (11/08/16) HEIGHT- FT: 6 IN: 1.00 K.946 VTE General Information Labs: Laboratory Tests 11/08 1400 Coagulation PT (9.4 - 11.8 SECONDS) 11.7 INR (0.9 - 1.1) 1.08 Hematology Hgb (14.1 - 18.0 g/dL) 16.6 Hct (42.0 - 52.0 %) 50.2 Plt Count (142 - 424 K/mm3) 237 Disclaimer The following section includes nursing documentation that has been pulled in for pharmacy review. Patient's VTE score: 0 Patient's VTE Risk: VERY LOW RISK Clinical trial participant? No VTE prophylaxis NQF [id number] VTE prophylaxis ordered? Yes Type of prophylaxis/treatment: STACI at 0800
[2016-11-09 09:09] VITALS: BP 112/76
--- NOTE | 2016-11-09 09:10 | Discharge Summary Standard ---
Demographics: Admit date: 11/09/16 Chief complaint: nausea PRIMARY DIAGNOSIS: ACUTE HEPATITIS Allergies: Coded Allergies: No Known Allergies (11/08/16) History of present illness: History of present illness: this wm who over the last few days has been feeling ill with dec po intake and noted to have jaundice- he reports he was neg hepatitis about 4 weeks ago but does do iv drugs - he has had several rehabs for this - Past medical history: Family HX Family Hx Insignificant Yes Immunization HX Ped.Immunizations UTD Yes DT/Tetanus Unknown Pneumonia Never Had TB Test in last year No General CAD? No Angina: No FL: No Hypertension? Yes Hyperlipidemia? No CHF? No DVT? No PE? No COPD? No Asthma? No Anemia? No GERD? No Gastric ulcers? No Hernia? No Hypothyroidism? No CVA? No Seizures? No Diabetes? No UTI? No Stones? No BPH? No GB Disease: No Nephritic Syndrome? No Asplenia? No Hepatitis? No Sickle Cell Disease? No Arthritis? No Migraines? No Cataracts? No Glaucoma? No MRSA? No HIV? No TB? No Anxiety? No Depression? No Cancer? No Site: N Past Surgical HX Previous Surgery?N Current home meds: Reported Medications Clonidine Hydrochloride (Clonidine 0.2MG Tab) 0.2 MG PO DAILY Escitalopram Oxalate 5 MG PO DAILY #30 Temazepam (Restoril 30MG) 30 MG PO QHS #30 Social Hx: Smoking HX Tobacco Yes Type Cigarettes Packs/day N/A Are you/the child exposed to second-hand smoke: Yes Alcohol Alcohol: No Hx of Drug Use Drug Use? Yes Drug(s) of Choice: heroin Patien't marital status is single Patient's support system is good Review of systems: Constitutional see HPI, weakness. No: fever. Eyes No: drainage. Ears, Nose, Mouth, Throat No ear discharge Respiratory No: cough, shortness of breath, wheezing. Cardiovascular No chest pain, No syncope Gastrointestinal/Abdominal see HPI, abdominal pain, nausea, poor appetite, poor fluid intake, vomiting Genitourinary No: dysuria, frequency, hesitancy, hematuria. Musculoskeletal No: back pain, joint pain, neck pain. Skin No: rash. Neurological No: headache, seizure disorder. Psychiatric No: depressed. Exam: Lab data for last 24 hours: Laboratory Tests 11/09/16 0605: Sodium 143, Potassium 3.9, Chloride 107, Carbon Dioxide 31, BUN 6 L, Creatinine 0.9, Estimated Creat Clear 181, Estimated GFR (MDRD) 95, Glucose 86, Calcium 8.3 L, Total Bilirubin 10.4 H, AST 864 *H, ALT 1251 *H, Alkaline Phosphatase 293 H, Total Protein 6.3 L, Albumin 2.6 L, Globulin 3.7 H, Albumin/Globulin Ratio 0.7 L 11/08/16 1445: Urine Color CLEMENTE, Urine Appearance CLEAR, Urine pH TNP, Ur Specific [place] TNP , Urine Protein TNP, Urine Ketones TNP, Urine Blood TNP, Urine Nitrate TNP, Urine Bilirubin TNP, Urine Ictotest POSITIVE, Urine Urobilinogen TNP, Ur Leukocyte Esterase TNP, Urine RBC OCC, Urine WBC 5-10, Ur Squamous Epith Cells OCC, Urine Bacteria 3+, Coarse Granular Casts 5-10, WBC Casts OCC, Urine Mucus 2 +, Urine Glucose TNP 11/08/16 1400: Amylase 27, Lipase 127 11/08/16 1400: Total Bilirubin 11.4 H, Direct Bilirubin 8.34 H, Indirect Bilirubin 3.06 H, AST 1187 *H, ALT 1672 *H, Alkaline Phosphatase 370 H, Total Protein 7.3, Albumin 3.3 L 11/08/16 1400: Sodium 141, Potassium 4.4, Chloride 103, Carbon Dioxide 30, BUN 12, Creatinine 0.8, Estimated Creat Clear 213 H, Estimated GFR (MDRD) 109, Glucose 92, Calcium 9.1, Total Bilirubin 11.3 H, AST 1201 *H, ALT 1649 *H, Alkaline Phosphatase 369 H, Total Protein 7.6, Albumin 3.2 L, Globulin 4.4 H, Albumin/Globulin Ratio 0.7 L, PT 11.7, INR 1.08, WBC 7.4, RBC 5.12, Hgb 16.6, Hct 50.2, MCV 97.9 H, RDW 14.3, Plt Count 237, MPV 8.5, Gran % 62.6, Gran # 4.7, Lymphocytes % 26.5, Monocytes % 9.3, Eosinophils % 0.9, Basophils % 0.7, Lymphocytes # 2.0, Monocytes # 0.7, Eosinophils # 0.1, Basophils # 0.1, PUBS MCHC 33.2, MCH 32.5 H Microbiology 11/08 1445 URINE CC: Urine Culture - RES Admission vital signs: 1ST Vital Signs Result Date Time Pulse Ox 96 11/08 1353 B/P 144/88 11/08 1353 Temp 98.8 11/08 1353 Pulse 73 11/08 1353 Resp 18 11/08 1353 O2 Delivery ROOM AIR 11/08 1813 Exam General appearance: alert, awake, no acute distress Eyes: PERRLA, scleral icterus ENT: mucous membranes moist Neck: no JVD Cardiovascular: regular rate & rhythm Respiratory: no respiratory distress ABD: soft, no tenderness, no guarding, hepatomegaly Genitourinary: no hematuria Extremities: moves all Musculoskeletal: equal muscle strength Skin: dry Neuro: alert, 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 Follow up Follow up in office in: 5 DAYS with: RAJAT HUGHES Comment: will see in office next week to check labs and arrange follow up at 0909
[2016-11-09] MEDS ORDERED: ZOFRAN4 MG PO (09:12)
[2016-11-09 09:34] VITALS: BP 112/76
--- NOTE | 2016-11-09 23:15 | RADIOLOGY REPORT PS360 ---
US GALLBLADDER (ABD LTD) Ordering Physician: Daljit Leo MD Patient Age: 36 years: Male HISTORY: abnormal GB on CT TECHNIQUE: Ultrasound right upper quadrant FINDINGS. Pancreas. Poorly seen obscured by gas. The body grossly unremarkable. It is much better viewed on CT from earlier today... Liver. . . Slightly coarse architecture throughout with perhaps minimal fatty change. Question some mild. Oral edema in some areas but this is equivocal. No intrahepatic bili ductal dilatation. Gallbladder. Contracted gallbladder with Very thick gallbladder wall. Gallbladder wall measures at over 6 mmto 8 mm... No gallstones. . common duct appears generous but within normal limits measures 5 mm at the marielos hepatis and 6 mm just inferior to this. Right kidney are normal in size with no hydronephrosis nor mass. But limited images here 11.6 seem in length. Cortex well-maintained. IMPRESSION: --------- 1. Gallbladder. Pronounced wall thickening with very contracted appearance. No gallstones identified. . Findings consistent with cholecystitis.. 2.... Common duct generous but normal caliber . It measures ~6 mm inferior to the marielos hepatis . No intrahepatic ductal dilatation 3. Liver with slightly coarse architecture and fatty changes.. Pancreas poorly seen due to overlying gas
[2016-11-10 09:38] LABS: HBsAg Screen Negative (Negative); Hep A Ab, IgM Negative (Negative); Hep B Core Ab, IgM Negative (Negative); Hep C Virus Ab >11.0 (0.0-0.9)
== END 2016-11-09 12:50 | disposition home or self-care (01) | DRG 442 ==
LOC: ER 13:48 → 2ND 17:46
PROVIDERS: Emergency Medicine
DX: B17.9 Acute viral hepatitis, unspecified (principal); F11.20 Opioid dependence, uncomplicated
CPT/HCPCS: J2405; Q9967